=== PATIENT | male | born 1930 | race Caucasian/White ===

== ENCOUNTER 2016-12-29 01:35 | Inpatient (IN) | payer OTHER ==
[~2016-12-29] VITALS: Ht 175.3 cm; Wt 86.6 kg
--- NOTE | 2016-12-29 01:37 | NUR ---
PT SONIA ALS. TAKEN TO BED 3
[2016-12-29 01:43] VITALS: BP 149/76
[2016-12-29 01:56] LABS: RED CELL DISTRIBUTION WIDTH 13.1 % (11.6-13.7); WHITE BLOOD COUNT (AUTO) 13.3 K/uL (4.8-10.8)
--- NOTE | 2016-12-29 02:00 | NUR ---
Sonja appiah in [facility] - 12/29/16 at [address] Eddy evaluating patient at bedside.
--- NOTE | 2016-12-29 02:02 | NUR ---
X-Ray at bedside.
[2016-12-29 02:05] LABS: HEMATOCRIT 45.1 % (36-52); HEMOGLOBIN 14.4 g/dL (12.0-18.0); MEAN CORPUSCULAR HEMOGLOBIN 27 pg (27-31); MEAN CORPUSCULAR HGB CONC 32 g/dL (33-37); MEAN CORPUSCULAR VOLUME 85 fL (80-94); PLATELET COUNT (AUTO) 159 K/uL (140-450); RED BLOOD CELL COUNT(AUTO) 5.32 MIL/uL (4.20-6.10)
[2016-12-29] MEDS: NACL 0.9% 1,000 ML IV SCH ×5 (02:08→23:35)
[2016-12-29] MEDS ORDERED: ACETAMINOPHEN EXTRA STRENGTH 500 MG TAB ONE (02:09)
[2016-12-29 02:11] LABS: APPEARANCE,URINE CLEAR (CLEAR); BILIRUBIN,URINE NEGATIVE (NEGATIVE); BLOOD, URINE 2+ (NEGATIVE); COLOR,URINE YELLOW (YELLOW); LEUKOCYTE ESTERASE ,URINE NEGATIVE (NEGATIVE); NITRITE, URINE NEGATIVE (NEGATIVE); PH,URINE 7.5 (5.0-9.0); PROTEIN,URINE NEGATIVE (NEGATIVE); UGLUCOSE NEGATIVE (NEGATIVE); UROBILINOGEN,URINE 0.2 EU/dL (0.2 - 1)
--- NOTE | 2016-12-29 02:11 | NUR ---
86Y M BIB [facility] C/O OF [place], PT FROM HOME AND HE LIVES WITH HIS . ACCORDING TO SON AT BEDSIDE, HE WAS CALLED AND WHEN HE TALKS TO HIS DAD, HE MUMBLES ON THE PHONE. IT WAS THE REASON WHY THEY GOT WORRIED AND CALL AMBULANCE. PT HAS TEMP 100.8.
[2016-12-29 02:12] LABS: BAND % (MANUAL) 17 % (0-8); EOSINOPHILS % (MANUAL) 1 % (0-4); LYMPHOCYTES % (MANUAL) 8 % (20-46); MONOCYTES % (MANUAL) 2 % (5-12); NEUTROPHILS % (MANUAL) 72 (43-65)
[2016-12-29 02:14] LABS: ALANINE AMINOTRANSFERASE 23 U/L (12-78); ALBUMIN 3.5 g/dL (3.4-5.0); ALKALINE PHOSPHATASE 87 U/L (46-116); ANION GAP 12.7 (8-16); ASPARTATE AMINOTRANSFERASE 25 U/L (15-37); CALCIUM 8.5 mg/dL (8.5-10.1); CARBON DIOXIDE 28.3 mmol/L (21-32); CHLORIDE 103 mmol/L (98-107); GLUCOSE 128 mg/dL (74-106); INR 1.1 (0.8-1.2); SODIUM SERUM 140 mmol/L (136-145); TOTAL BILIRUBIN 0.5 mg/dL (0.0-1.0); TOTAL PROTEIN, SERUM 7.4 g/dL (6.4-8.2); UREA NITROGEN, BLOOD 9 mg/dL (7-18)
[2016-12-29] MEDS ORDERED: AZITHROMYCIN 500 MG in DEXTROSE 5% 250 ML IV ONE (02:35)
--- NOTE | 2016-12-29 02:45 | NUR ---
Dr. Eddy evaluating patient at bedside.
[2016-12-29] MEDS ORDERED: cefTRIAXone 1,000 MG VIAL ONE (02:47)
[2016-12-29] MEDS ORDERED: AZITHROMYCIN 500 MG INJ VIAL IV ONE (02:48)
[2016-12-29 02:51] LABS: LACTIC ACID 1.3 mmol/L (0.4-2.0)
[2016-12-29 03:07] LABS: BACTERIA,URINE None Seen /HPF (None Seen); MUCUS,URINE 4+ /LPF (None Seen); SQUAMOUS EPITHELIAL CELL,UR None Seen /LPF (0-3 (FEW)); WBC,URINE 0-5 (RARE) /HPF (0-5)
[2016-12-29] MEDS ORDERED: MORPHINE SULFATE 2 MG/ML SYR IVP PRN (03:45)
[2016-12-29] MEDS ORDERED: ACETAMINOPHEN 325 MG TAB PO PRN (03:45)
[2016-12-29] MEDS ORDERED: ONDANSETRON 4 MG/2 ML VIAL IVP PRN (03:45)
[2016-12-29] MEDS ORDERED: LORazepam 2 MG/ML VIAL IVP PRN (03:45)
[2016-12-29] MEDS ORDERED: HYDROcodone/APAP 5/325 MG 1 TAB TAB PO PRN (03:45)
--- NOTE | 2016-12-29 03:45 | NUR ---
Patient will be admitted to care of dr. howard. Admited to telemtry. Will go to [id number] a. Belongings list completed.
--- NOTE | 2016-12-29 04:05 | NUR ---
REPORT GIVEN TO GLORIA GODFREY.
--- NOTE | 2016-12-29 04:45 | NUR ---
RECEIVED PT ON BED RESTING COMFORTABLY. INITIAL ASSESSMENT COMPLETED. AAOX3. PT PT IS ON TELE MONITOR. IVF RUNNING AT RIGHT AC 20G. PATENT, INTACT. NOTED TO HAVE SCROTAL EDEMA, BILATERAL LOWER EXTREMITIES +1 PITTING EDEMA. SCAB NOTED AT RIGHT FRONTAL LOBE. BED IN LOW POSITION. SAFETY MEASURE ENSURE. CALL LIGHT WITHIN REACH. NO SIGNS OF DISTRESS. WILL CONTINUE TO MONITOR. Addendum: 12/29/16 at 0724 by Hamlet Cowan RN O2 @ 2 LPM VIA NASAL CANNULA.
[2016-12-29 04:59] VITALS: BP 117/64
[2016-12-29] MEDS: AZITHROMYCIN 500 MG in DEXTROSE 5% 250 ML IV SCH (05:00)
--- NOTE | 2016-12-29 06:05 | NUR ---
FEBRILE 101.3. MEDICATED WITH TYLENOL PO ORDERED. COOLING MEASURE APPLIED. WILL CONTINUE TO MONITOR.
--- NOTE | 2016-12-29 06:54 | NUR ---
TEMP RECHECKED. T 99.4 AT THIS TIME. WILL CONTINUE TO MONITOR.
--- NOTE | 2016-12-29 07:22 | NUR ---
REPORT GIVEN TO JULIAN GODFREY OF AM SHIFT FOR CONTINUITY OF CARE. PT RESTING COMFORTABLY ON BED AT THIS TIME.
--- NOTE | 2016-12-29 07:23 | NUR ---
RECEIVED REPORT FROM BLOCK ENGRAVER NURSE AT BEDSIDE. PT IS A&OX3. PT'S SCROTUM IS EDEMATOUS, ELEVATED WITH A TOWEL. TEMP 98.7. WILL CONTINUE TO MONITOR. PT HAS IV ON R AC 20 G RUNNING NS@80ML/HR. PT IS ON O2 2L NC, O2 SAT 97%. HELPED PT USE URINAL, 500ML TOTAL EMPTIED. CALL LIGHT WITHIN REACH. WILL CONTINUE TO MONITOR.
[2016-12-29 08:00] VITALS: BP 131/70
[2016-12-29] MEDS: ALBUTEROL 0.083% 2.5 MG/3 ML NEBU INH PRN ×2 (08:14→14:18)
--- NOTE | 2016-12-29 08:29 | NUR ---
AWAKE AND ALERT DURING AND POST HHN THERAPY PATIENT PRESENTING WITH STRG MOIST NON PRODUCTIVE COUGH SPECIMEN CUP PLACED AT BEDSIDE FOR SPUTUM COLLECTION YUKI/BEKAH NOTIFIED Addendum: 12/29/16 at 0837 by Dilip Stevenson RT REVIEWED CXR DATED 12/29/2016
--- NOTE | 2016-12-29 08:53 | NUR ---
PATIENT HAS BEEN SCREENED AND CATEGORIZED LOW NUTRITION RISK. PATIENT WILL BE SEEN WITHIN 7 DAYS OF ADMISSION. 01/04/[address] Addendum: 12/29/16 at [address] ERROR PATIENT HAS BEEN SCREENED AND CATEGORIZED MODERATE NUTRITION RISK. PATIENT WILL BE SEEN WITHIN 3-5 DAYS OF ADMISSION. 12/31/16-01/02/[address]
--- NOTE | 2016-12-29 09:00 | NUR ---
TEMP 98.1, CALL LIGHT WITHIN REACH.
[2016-12-29] MEDS: ENOXAPARIN 40 MG/0.4 ML SYR SUBQ SCH (09:08)
--- NOTE | 2016-12-29 10:25 | NUR ---
SON VISITED AT BEDSIDE. PT IN STABLE CONDITION.
--- NOTE | 2016-12-29 10:40 | NUR ---
REMINDED PT TO COUGH UP MUCUS SPECIMEN. PT VERBALIZED UNDERSTANDING.
[2016-12-29 11:27] LABS: CREATINE KINASE MB 0.6 ng/mL (0-3.6)
--- NOTE | 2016-12-29 11:30 | NUR ---
PT IS RESTING IN BED. NO DISTRESS NOTED. NO COMPLAINTS AT THIS TIME. CALL LIGHT WITHIN REACH. WILL CONTINUE TO MONITOR.
[2016-12-29 12:00] VITALS: BP 131/68
--- NOTE | 2016-12-29 13:00 | NUR ---
COLLECTED PT'S MUCUS AND SENT TO LAB.
--- NOTE | 2016-12-29 13:30 | NUR ---
AND FRIEND AT BEDSIDE. PT EATING LUNCH IN BED. CALL LIGHT WITHIN REACH. WILL CONTINUE TO MONITOR.
--- NOTE | 2016-12-29 15:30 | NUR ---
CHECKED PT'S TEMP 99. CHECKED 20 MINUTES LATER, 99.9. ICE PACK APPLIED. WILL CHECK AGAIN.
--- NOTE | 2016-12-29 15:40 | NUR ---
CM NOTE INITIAL REVEIW SENT TO [facility] [phone] P DECEMBER [phone]
[2016-12-29 16:00] VITALS: BP 117/58
--- NOTE | 2016-12-29 16:00 | NUR ---
PT TEMP 98.8. WILL RECHECK. NO DISTRESS NOTED. CALL LIGHT WITHIN REACH.
--- NOTE | 2016-12-29 17:30 | NUR ---
PT'S TEMP 98. WILL CONTINUE TO MONITOR. PT SAT UP IN BED TO EAT DINNER. TOLERATING WELL.
[2016-12-29 18:47] LABS: CREATINE KINASE MB 0.4 ng/mL (0-3.6)
--- NOTE | 2016-12-29 19:20 | NUR ---
RECEIVED REPORT FROM BEKAH MIRZA AND SORAYA AT BEDSIDE. INITIAL ASSESSMENT COMPLETED. PT AOX3, SHOWS EPISODES OF CONFUSION AT TIMES. PT'S SKIN IS INTACT. PT HAS EDEMATOUS SCROTUM. PT ON 02 2L NC. PT HAS IV ON RIGHT AC G 20; INFUSING FLUIDS WELL. PT USES URINAL AT BEDSIDE. ORIENTED PT TO ROOM AND SURROUNDINGS AND USE OF CALL LIGHT. EXPLAINED PLAN OF CARE TO PT AND HE VERBALIZES UNDERSTANDING. WILL CONTINUE TO MONITOR PT.
--- NOTE | 2016-12-29 19:24 | NUR ---
ENDORSED CARE OF PT TO HOME SALES SERVICE PROFESSIONAL NURSE. PT IN STABLE CONDITION.
[2016-12-29 20:00] VITALS: BP 127/65
--- NOTE | 2016-12-29 20:55 | NUR ---
PT'S SON AT BEDSIDE VISITING, WILL CONTINUE TO MONITOR PT.
--- NOTE | 2016-12-29 23:05 | NUR ---
PT SLEEPING AT THIS TIME, NO SIGNS OF DISTRESS OR DISCOMFORT NOTED. CALL LIGHT WITHIN REACH.
[2016-12-30] VITALS: BP 133/68
--- NOTE | 2016-12-30 01:15 | NUR ---
0200 ROCEPHIN INFUSING AT THIS TIME, WILL CONTINUE TO MONITOR PT.
--- NOTE | 2016-12-30 02:33 | NUR ---
PT REQUESTING A BLANKET, PROVIDED WITH A WARM BLANKET. ALL NEEDS MET AT THIS TIME, WILL CONTINUE TO MONITOR PT.
[2016-12-30] MEDS: AZITHROMYCIN 500 MG in DEXTROSE 5% 250 ML IV SCH (04:43)
--- NOTE | 2016-12-30 04:44 | NUR ---
0500 AZITHROMYCIN INFUSING NOW. PT STABLE, WILL CONTINUE TO MONITOR PT.
[2016-12-30 05:34] LABS: BASOPHILS # (AUTO) 0.1 K/uL (0.00-0.22); BASOPHILS % (AUTO) 0.9 % (0.0-2.0); EOSINOPHILS # (AUTO) 0.4 K/uL (0-0.4); HEMATOCRIT 39.7 % (36-52); LYMPHOCYTES # (AUTO) 1.6 K/uL (2.0-11.5); MEAN CORPUSCULAR HEMOGLOBIN 28 pg (27-31); MEAN CORPUSCULAR HGB CONC 33 g/dL (33-37); MEAN CORPUSCULAR VOLUME 86 fL (80-94); MONOCYTES # (AUTO) 0.8 K/uL (0.8-1.0); MONOCYTES % (AUTO) 6.2 % (1.7-9.3); NEUTROPHILS # (AUTO) 10.4 K/uL (1.8-7.7); NEUTROPHILS % (AUTO) 77.9 % (42.2-75.2); PLATELET COUNT (AUTO) 133 K/uL (140-450); RED BLOOD CELL COUNT(AUTO) 4.62 MIL/uL (4.20-6.10); RED CELL DISTRIBUTION WIDTH 13.3 % (11.6-13.7); WHITE BLOOD COUNT (AUTO) 13.3 K/uL (4.8-10.8)
[2016-12-30 06:18] LABS: ALANINE AMINOTRANSFERASE 16 U/L (12-78); ALBUMIN 2.6 g/dL (3.4-5.0); ALKALINE PHOSPHATASE 65 U/L (46-116); ANION GAP 10.5 (8-16); ASPARTATE AMINOTRANSFERASE 18 U/L (15-37); CARBON DIOXIDE 26.3 mmol/L (21-32); CHLORIDE 107 mmol/L (98-107); CREATININE 0.8 mg/dL (0.6-1.3); GLUCOSE 109 mg/dL (74-106); MAGNESIUM 1.9 mg/dL (1.8-2.4); POTASSIUM 3.8 mmol/L (3.5-5.1); SODIUM SERUM 140 mmol/L (136-145); TOTAL BILIRUBIN 0.5 mg/dL (0.0-1.0); TOTAL PROTEIN, SERUM 6.2 g/dL (6.4-8.2); UREA NITROGEN, BLOOD 11 mg/dL (7-18)
--- NOTE | 2016-12-30 07:20 | NUR ---
ENDORSED PT IN STABLE CONDITION TO BEKAH CASAS.
--- NOTE | 2016-12-30 07:25 | NUR ---
RECEIVED REPORT FROM BEKAH BYRD. PT IS RESTING IN BED, A/OX3-4, AMBULATES WITH ASSIST, SKIN IS INTACT, THERE IS SCROTUM INFLAMMATION NOTED, IV IS ON THE RT AC, PATENT, INTACT, INFUSING WELL, NO S/S OF RESPIRATORY DISTRESS OR DISCOMFORT NOTED, DISCUSSED PLAN OF CARE WITH PT, PT VERBALIZED UNDERSTANDING, SAFETY/FALL PRECAUTIONS ARE IN PLACE, CALL LIGHT WITHIN REACH, WILL CONTINUE TO MONITOR.
[2016-12-30 08:00] VITALS: BP 126/74
[2016-12-30] MEDS: ENOXAPARIN 40 MG/0.4 ML SYR SUBQ SCH (09:15)
--- NOTE | 2016-12-30 09:30 | NUR ---
PT IS RESTING IN BED NO S/S OF RESPIRATORY DISTRESS OR DISCOMFORT NOTED, CALL LIGHT WITHIN REACH,WILL CONTINUE TO MONITOR.
--- NOTE | 2016-12-30 11:30 | NUR ---
PT RESTING IN BED, WATCHING TV, CALL LIGHT WITHIN REACH.
--- NOTE | 2016-12-30 12:28 | NUR ---
FAXED CONCURRENT REVIEW TO [facility] [phone] PHONE JOSE ALEJANDRO [phone]
--- NOTE | 2016-12-30 12:30 | NUR ---
PT SITTING ON CHAIR EATING LUNCH, WATCHING TV, CALL LIGHT IS WITHIN REACH.
--- NOTE | 2016-12-30 14:05 | NUR ---
CALLED RT TO REQUEST A BREATHING TREATMENT FOR PT.
[2016-12-30] MEDS: ALBUTEROL 0.083% 2.5 MG/3 ML NEBU INH PRN ×2 (14:10→19:43)
[2016-12-30 16:00] VITALS: BP 131/69
--- NOTE | 2016-12-30 16:30 | NUR ---
PT RESTING IN BED, NO S/S OF RESPIRATORY DISTRESS OR DISCOMFORT NOTED, CALL LIGHT WITHIN REACH, WILL CONTINUE TO MONITOR.
[2016-12-30] MEDS: NACL 0.9% 1,000 ML IV SCH (17:22)
--- NOTE | 2016-12-30 19:35 | NUR ---
ENDORSED PT TO BEKAH SUN. FOR CONTINUITY OF CARE, PT STABLE ON AT THIS TIME.
--- NOTE | 2016-12-30 19:45 | NUR ---
RECEIVED REPORT FROM DAY RN. PT RESTING IN BED, NO S/S OF ACUTE DISTRESS OR DISCOMFORT NOTED. VITAL SIGNS TAKEN T,99.2, BP 116/51, HR 76, O2 SAT 95%, RR, 19. PATIENT ON 1L O2 NC. IV INTACT AND PATENT, NOTED PT HAS EDEMATOUS SCROTUM. CALL LIGHT WITHIN REACH, SAFETY MEASURE ENSURED, WILL CONTINUE TO MONITOR
--- NOTE | 2016-12-30 21:30 | NUR ---
PT IV INFILTRATED, SLIGHTLY SWELLING NOTED AT THE IV SITE. IV TAKEN OUT, TIP INTACT. STARTED NEW IV ON LT HAND, 22G, FLUID INFUSING, NO S/S OF PAIN OR DISCOMFORT NOTED. PT'S SON AT BEDSIDE, NOTED PT WAS TALKING WITH HIS SON WITHOUT ANY SOB, PT'S SON STATED HIS DAD WANTED TO LEAVE THE BEDSIDE RAIL DOWN, EDUCATED THEM THE RAILS WERE FOR SAFETY. PT VERBALIZED UNDERSTANDING. CALL LIGHT WITHIN REACH, SAFETY MEASURE ENSURED, WILL CONTINUE TO MONITOR
--- NOTE | 2016-12-30 23:50 | NUR ---
PT SLEEPING IN BED, NO S/S OF ACUTE DISTRESS NOTED, RESPIRATION EVEN AND UNLABORED, VITAL SIGN TAKEN, STABLE. CALL LIGHT WITHIN REACH, SAFETY MEASURE ENSURED, WILL CONTINUE TO MONITOR
[2016-12-31] VITALS: BP 110/63
--- NOTE | 2016-12-31 02:53 | NUR ---
PT SLEEPING IN BED, RESPIRATION EVEN AND UNLABORED, NO S/S OF ACUTE DISTRESS NOTED, CALL LIGHT WITHIN REACH, SAFETY MEASURE ENSURED WILL CONTINUE TO MONITOR
[2016-12-31] MEDS: AZITHROMYCIN 500 MG in DEXTROSE 5% 250 ML IV SCH (04:25)
--- NOTE | 2016-12-31 04:45 | NUR ---
PT SLEEPING IN BED, RESPIRATION EVEN AND UNLABORED, SCHEDULED ZITHROMAX IS INFUSING, NO S/S OF ACUTE DISTRESS NOTED, CALL LIGHT WITHIN REACH, SAFETY MEASURE ENSURED, WILL CONTINUE TO MONITOR
[2016-12-31] MEDS: NACL 0.9% 1,000 ML IV SCH ×2 (05:41→09:23)
--- NOTE | 2016-12-31 06:08 | NUR ---
PT O2 SAT AT 95% ON 1L O2 NC, WENT TO X RAY IN WHEEL CHAIR
--- NOTE | 2016-12-31 06:10 | NUR ---
PT BACK FROM X-RAY. NO S/S OF ACUTE DISTRESS NOTED, CALL LIGHT WITHIN REACH, SAFETY MEASURE ENSURED, WILL CONTINUE TO MONITOR
[2016-12-31 06:42] LABS: BASOPHILS # (AUTO) 0.1 K/uL (0.00-0.22); BASOPHILS % (AUTO) 0.9 % (0.0-2.0); EOSINOPHILS # (AUTO) 0.7 K/uL (0-0.4); HEMATOCRIT 37.5 % (36-52); HEMOGLOBIN 12.5 g/dL (12.0-18.0); LYMPHOCYTES # (AUTO) 1.8 K/uL (2.0-11.5); LYMPHOCYTES % (AUTO) 20.4 % (20.5-51.1); MEAN CORPUSCULAR HEMOGLOBIN 29 pg (27-31); MEAN CORPUSCULAR HGB CONC 33 g/dL (33-37); MEAN CORPUSCULAR VOLUME 86 fL (80-94); MONOCYTES # (AUTO) 0.8 K/uL (0.8-1.0); MONOCYTES % (AUTO) 9.6 % (1.7-9.3); NEUTROPHILS # (AUTO) 5.2 K/uL (1.8-7.7); NEUTROPHILS % (AUTO) 61.1 % (42.2-75.2); PLATELET COUNT (AUTO) 134 K/uL (140-450); RED BLOOD CELL COUNT(AUTO) 4.38 MIL/uL (4.20-6.10); RED CELL DISTRIBUTION WIDTH 12.8 % (11.6-13.7); WHITE BLOOD COUNT (AUTO) 8.6 K/uL (4.8-10.8)
[2016-12-31 06:44] LABS: ANION GAP 7.5 (8-16); CARBON DIOXIDE 29.4 mmol/L (21-32); CHLORIDE 107 mmol/L (98-107); CREATININE 0.8 mg/dL (0.6-1.3); GLUCOSE 117 mg/dL (74-106); POTASSIUM 3.9 mmol/L (3.5-5.1); SODIUM SERUM 140 mmol/L (136-145); UREA NITROGEN, BLOOD 9 mg/dL (7-18)
[2016-12-31 06:53] LABS: MAGNESIUM 1.8 mg/dL (1.8-2.4); PHOSPHORUS 3.1 mg/dL (2.5-4.9)
--- NOTE | 2016-12-31 07:10 | NUR ---
ENDORSED PLAN OF CARE TO DAY SHIFT RN. PATIENT IS STABLE.
--- NOTE | 2016-12-31 07:10 | NUR ---
RECEIVED REPORT FROM NIGHT NURSE, PT IS AAOX4 ARMENIAN SPEAKING, IV TO LEFT HAND 22G INFUSING WELL, RIGHT FOREHEAD SCAB, SWOLLEN SCROTUM. PT INITIALLY ON O21L BUT SAT 96% WITHOUT OXYGEN, INITIAL ASSESSMENT COMPLETED, REVIEW PLAN OF CARE WITH PT, PT VERBALIZED UNDERSTANDING, ALL SAFETY PRECAUTIONS MET. CALL LIGHT WITHIN REACH. WILL CONTINUE TO MONITOR.
[2016-12-31 08:00] VITALS: BP 140/60
[2016-12-31] MEDS: ENOXAPARIN 40 MG/0.4 ML SYR SUBQ SCH (09:00)
--- NOTE | 2016-12-31 09:10 | NUR ---
PT CURRENTLY AWAKE EATING BREAKFAST, NO S/S OF DISTRESS NOTED. ALL NEEDS MET. CALL LIGHT WITHIN REACH. WILL CONTINUE TO MONITOR.
--- NOTE | 2016-12-31 11:20 | NUR ---
PT CURRENTLY SLEEPING, CHECKED PULSE OX 94% ON ROOM AIR. WILL CONTINUE TO MONITOR.
[2016-12-31] MEDS ORDERED: LEVO750T2 PO (13:32)
--- NOTE | 2016-12-31 14:12 | NUR ---
DISCUSSED DISCHARGE PLAN WITH PT, PT VERBALIZED UNDERSTANDING.
--- NOTE | 2016-12-31 14:13 | NUR ---
CONTACTED CHRISTOPHER EARLY (SON) TO INFORM HIM OF PT DISCHARGE, STATES THAT HE WILL BIN TO PICK PT UP IN 3 HOURS, INFORM PT, PT VERBALIZED UNDERSTANDING.
--- NOTE | 2016-12-31 15:34 | NUR ---
PT CURRENTLY SITTING ON CHAIR AT BEDSIDE, NO S/S OF DISTRESS NOTED. ALL NEEDS MET. CALL LIGHT WITHIN REACH. WILL CONTINUE TO MONITOR.
--- NOTE | 2016-12-31 15:54 | NUR ---
P.T. NOTES P.T. LITO SCHAWRTZ; NURSING TO AMBULATE PATIENT AD MALIHA. Addendum: 12/31/16 at 1554 by Cammy Rain PT Amended: Links added.
[2016-12-31 16:00] VITALS: BP 130/71
--- NOTE | 2016-12-31 17:35 | NUR ---
SON IN TO PICK PT UP, PT SIGNED ALL DISCHARGE PAPERWORK, IV REMOVED TIP INTACT, DISCHARGE PRESCRIPTION GIVEN, DISCHARGE EDUCATION GIVEN, ALL PERSONAL BELONGINGS WITH PT, PT CURRENTLY EATING DINNER. WILL WALK TO FRONT LOBBY ONCE READY.
--- NOTE | 2016-12-31 18:05 | NUR ---
PT WAS WALKED UT TO FRONT LOBBY IN STABLE CONDITION.
== END 2016-12-31 18:06 | disposition home or self-care (01) | DRG 133 ==
LOC: MED 01:35 → MTU 03:45
PROVIDERS: ADMIT Internal Medicine Pulmonary Disease; ATTEND Internal Medicine Pulmonary Disease
DX: J96.00 Acute respiratory failure, unspecified whether with hypoxia or hypercapnia (principal); G93.41 Metabolic encephalopathy; J18.9 Pneumonia, unspecified organism
CPT/HCPCS: 36415; 71010; 71020; 80048; 80053; 81001; 82550; 82553; 83605; 83735; 83874; 83880; 84100; 84484; 85025; 85610; 85730; 87040; 87070; 87081; 87086; 87186; 87205; 93005; 94640; 97110; 99285; J0456; J0696; J1650; J7030; J7060; J7613; Q0092

== ENCOUNTER 2017-09-08 05:58 | Day surgery (SDC) | payer OTHER ==
[~2017-09-08] VITALS: Ht 172.7 cm; Wt 83.9 kg
[~2017-09-08 05:58] MED LIST: LEVO750T2 PO
[2017-09-08] MEDS ORDERED: MIDAZOLAM 2 MG/2 ML VIAL ONE (07:27)
[2017-09-08] MEDS ORDERED: fentaNYL 0.05 MG/ML VIAL ONE (07:27)
[2017-09-08] MEDS ORDERED: LIDOCAINE 2% 100 MG/5 ML UJET TP ONE (07:29)
[2017-09-08] MEDS ORDERED: MIDAZOLAM 2 MG/2 ML VIAL IVP ONE (09:05)
== END 2017-09-08 10:09 | disposition home or self-care (01) ==
LOC: MDS 05:58 → MMU 06:01 → MDS 10:09
PROVIDERS: ATTEND Internal Medicine Gastroenterology
DX: K63.5 Polyp of colon (principal); Z87.01 Personal history of pneumonia (recurrent); G93.41 Metabolic encephalopathy; J96.01 Acute respiratory failure with hypoxia; E66.3 Overweight; Z68.28 Body mass index [BMI] 28.0-28.9, adult
CPT/HCPCS: 45381; 45385; 88305; J2250; J3010

== ENCOUNTER 2017-11-26 23:19 | Emergency (ER) | payer OTHER ==
[~2017-11-26] VITALS: Ht 167.6 cm; Wt 79.4 kg
[2017-11-26 23:20] VITALS: BP 177/93
--- NOTE | 2017-11-26 23:20 | NUR ---
PT SONIA BLS. TAKEN TO BED 2
--- NOTE | 2017-11-26 23:40 | NUR ---
87Y/M BIBA C/O FEVER AND COUGH X3 DAYS RR EVEN AND UNLABORED, BL BS DIMINSHED THROUGH OUT, PT STATES HE HAS WHITE SPUTUM. PT HAS HAD VOMITING X1 DAY, ZOFRAN 4MG ODT GIVEN ON TRANSPORT. ABD IS SOFT, FLAT, NON TENDER, ACTIVE BS X4. PT AA&OX4, SITTING IN BED. NO PMH, NKA
[2017-11-27] MEDS ORDERED: AZITHROMYCIN 500 MG in DEXTROSE 5% 250 ML IV ONE ×2
[2017-11-27] MEDS ORDERED: ACETAMINOPHEN EXTRA STRENGTH 500 MG TAB PO ONE
[2017-11-27] MEDS ORDERED: cefTRIAXone 1,000 MG in DEXT 5% MINI-BAG PLUS 50 ML IV ONE ×2
--- NOTE | 2017-11-27 00:05 | NUR ---
Respiratory Therapist at bedside for respiratory intervention.
[2017-11-27] MEDS ORDERED: cefTRIAXone 1,000 MG VIAL ONE (00:08)
[2017-11-27] MEDS ORDERED: AZITHROMYCIN 500 MG INJ VIAL IV ONE (00:08)
[2017-11-27 00:18] LABS: BASOPHILS % (AUTO) 0.7 % (0.0-2.0); EOSINOPHILS # (AUTO) 0.1 K/uL (0-0.4); EOSINOPHILS % (AUTO) 2.4 % (0.0-4.0); HEMATOCRIT 40.3 % (36-52); HEMOGLOBIN 13.2 g/dL (12.0-18.0); LYMPHOCYTES % (AUTO) 17.4 % (20.5-51.1); MEAN CORPUSCULAR HEMOGLOBIN 28 pg (27-31); MEAN CORPUSCULAR HGB CONC 33 g/dL (33-37); MEAN CORPUSCULAR VOLUME 84.6 fL (80-94); MONOCYTES # (AUTO) 0.8 K/uL (0.8-1.0); MONOCYTES % (AUTO) 13.9 % (1.7-9.3); NEUTROPHILS # (AUTO) 3.8 K/uL (1.8-7.7); NEUTROPHILS % (AUTO) 65.6 % (42.2-75.2); PLATELET COUNT (AUTO) 133 K/uL (140-450); RED BLOOD CELL COUNT(AUTO) 4.77 MIL/uL (4.20-6.10); RED CELL DISTRIBUTION WIDTH 14.4 % (11.6-13.7); WHITE BLOOD COUNT (AUTO) 5.7 K/uL (4.8-10.8)
[2017-11-27 00:29] LABS: ANION GAP 10.9 (8-16); CHLORIDE 100 mmol/L (98-107); CREATININE 0.9 mg/dL (0.7-1.3); GLUCOSE 119 mg/dL (74-106); POTASSIUM 3.9 mmol/L (3.5-5.1); SODIUM SERUM 134 mmol/L (136-145); UREA NITROGEN, BLOOD 13 mg/dL (7-18)
[2017-11-27 00:35] LABS: ALBUMIN 3.3 g/dL (3.4-5.0); ASPARTATE AMINOTRANSFERASE 24 U/L (15-37); TOTAL BILIRUBIN 0.5 mg/dL (0.0-1.0)
[2017-11-27] MEDS ORDERED: IPRATROPIUM 0.02% 0.5 MG/2.5 ML NEBU INH ONE ×2 (00:35)
[2017-11-27] MEDS ORDERED: ALBUTEROL 0.083% 2.5 MG/3 ML NEBU INH ONE ×2 (00:35)
[2017-11-27 01:07] LABS: APPEARANCE,URINE CLEAR (CLEAR); BILIRUBIN,URINE NEGATIVE (NEGATIVE); BLOOD, URINE 3+ (NEGATIVE); COLOR,URINE YELLOW (YELLOW); LEUKOCYTE ESTERASE ,URINE NEGATIVE (NEGATIVE); NITRITE, URINE NEGATIVE (NEGATIVE); UGLUCOSE NEGATIVE (NEGATIVE)
[2017-11-27 01:15] LABS: RBC,URINE 50-80 /HPF (0-5)
[2017-11-27 01:16] LABS: WBC,URINE 0-5 (RARE) /HPF (0-5)
--- NOTE | 2017-11-27 01:30 | NUR ---
PT IN LAYING IN BED, COMFORT NEEDS MET AT THIS TIME, FAMILY AT BEDSIDE, WILL CONTINUE TO MONITOR.
--- NOTE | 2017-11-27 02:30 | NUR ---
Patient discharged with v/s stable. Written and verbal after care instructions given and explained. Patient alert, oriented and verbalized understanding of instructions. Ambulatory with steady gait. All questions addressed prior to discharge. ID band removed. Patient advised to follow up with PMD. Rx of PREDNISONE, ZITHROMAX, IBUPROFEN, ALBUTEROL given. Patient educated on indication of medication including possible reaction and side effects. Opportunity to ask questions provided and answered.
[2017-11-27 02:31] VITALS: BP 124/61
== END 2017-11-27 02:30 | disposition home or self-care (01) ==
LOC: MED 23:19
DX: J40 Bronchitis, not specified as acute or chronic (principal); Z79.899 Other long term (current) drug therapy
CPT/HCPCS: 36415; 36600; 71045; 80053; 81001; 82803; 83605; 84484; 85025; 87040; 93005; 94640; 96365; 96367; 99285; J0456; J0696; J7060; J7613; J7644; Q0092

== ENCOUNTER 2018-02-23 08:07 | Day surgery (SDC) | payer OTHER ==
[~2018-02-23] VITALS: Ht 170.2 cm; Wt 83.9 kg
[2018-02-23] MEDS ORDERED: LIDOCAINE 2% 100 MG/5 ML UJET TP ONE (10:15)
[2018-02-23] MEDS ORDERED: fentaNYL 0.05 MG/ML VIAL ONE (11:03)
[2018-02-23] MEDS ORDERED: fentaNYL 0.05 MG/ML VIAL IVP ONE (13:45)
== END 2018-02-23 12:46 | disposition home or self-care (01) ==
LOC: MDS 08:07 → MMU 08:10 → MDS 12:46
PROVIDERS: ATTEND Internal Medicine Gastroenterology
DX: D12.2 Benign neoplasm of ascending colon (principal); D12.3 Benign neoplasm of transverse colon; E66.3 Overweight; Z68.29 Body mass index [BMI] 29.0-29.9, adult; Z79.2 Long term (current) use of antibiotics; Z79.899 Other long term (current) drug therapy; Z87.01 Personal history of pneumonia (recurrent); Z90.49 Acquired absence of other specified parts of digestive tract; Z98.890 Other specified postprocedural states
CPT/HCPCS: 45381; 45385; 88305; J3010

== ENCOUNTER 2019-10-17 11:06 | Inpatient (IN) | payer OTHER, SELFPAY ==
[~2019-10-17] VITALS: Ht 172.7 cm; Wt 83.5 kg
--- NOTE | 2019-10-17 11:06 | NUR ---
Patient BIBA ALS, transferred to bed 1. RN evaluating patient at bedside.
[2019-10-17 11:07] VITALS: BP 155/70
--- NOTE | 2019-10-17 11:14 | NUR ---
70/M BIBA WITH FEVER/FLU LIKE SYMPTOMS X TODAY. STATES PT HAD SUBJECTIVE FEVER, N/V X 1, DIZZY/WEAK, ALTERED X TODAY. NO FEVER WITH EMS. TEMPORAL 98.5 AT THIS TIME. GCS 14, AOX3. NO TRAVEL OR CONTACT HX. PT WAS 91% ON RA, NO RESP DISTRESS, PLACED ON 4L NC BY EMS AND SATURATION INCREASE TO 97% NOTED WITH OCCASIONAL MOIST COUGH WAS GIVEN 4MG ZOFRAN IVP BY EMS. HX- HERNIA REPAIR
--- NOTE | 2019-10-17 11:20 | NUR ---
DR ROMEO EVALUATING PT AT BEDSIDE
[2019-10-17] MEDS ORDERED: NACL 0.9% 500 ML IV SCH (11:24)
--- NOTE | 2019-10-17 11:41 | NUR ---
XRAY AT BEDSIDE
--- NOTE | 2019-10-17 11:48 | NUR ---
RT AT BEDSIDE FOR ABG
--- NOTE | 2019-10-17 11:49 | NUR ---
PHP ARCHITECT AT BEDSIDE
--- NOTE | 2019-10-17 12:02 | NUR ---
PER DIASHEEN AT [facility], PT FITS CRITERIA TO BE SWABBED FOR COVID 19. ADVISED TO SWAB FOR FLU A/B, REGARDLESS OF FLU SWAB RESULT, OBTAIN COVID 19 SWAB. NO PUI # NEEDED IF SAMPLE SENT TO [facility] OR [facility].
--- NOTE | 2019-10-17 12:06 | NUR ---
PT RESTING IN BED, ON BEDSIDE MONITOR, NO SIGNS OF DISTRESS.
[2019-10-17 12:13] LABS: HEMATOCRIT 41.5 % (36-52); HEMOGLOBIN 13.5 g/dL (12.0-18.0); MEAN CORPUSCULAR HEMOGLOBIN 28 pg (27-31); MEAN CORPUSCULAR HGB CONC 33 g/dL (33-37); MEAN CORPUSCULAR VOLUME 86.5 fL (80-94); PLATELET COUNT (AUTO) 136 K/uL (140-450); RED CELL DISTRIBUTION WIDTH 13.8 % (11.6-13.7); WHITE BLOOD COUNT (AUTO) 10.3 K/uL (4.8-10.8)
--- NOTE | 2019-10-17 12:19 | NUR ---
INFLUENZA SWAB, NOVEL CORONAVIRUS SWAB, AND URINE SAMPLE HANDED TO ALISSON GODFREY
[2019-10-17 12:25] LABS: APPEARANCE,URINE CLEAR (CLEAR); BILIRUBIN,URINE NEGATIVE (NEGATIVE); BLOOD, URINE 1+ (NEGATIVE); COLOR,URINE DARK YELLOW (YELLOW); LEUKOCYTE ESTERASE ,URINE NEGATIVE (NEGATIVE); NITRITE, URINE NEGATIVE (NEGATIVE); PH,URINE 7.5 (5.0-9.0); UGLUCOSE NEGATIVE (NEGATIVE)
[2019-10-17 12:28] LABS: PROTHROMBIN TIME 10.3 secs (10.8-13.4)
[2019-10-17 12:31] LABS: ALBUMIN 3.1 g/dL (3.4-5.0); ANION GAP 13.5 (8-16); ASPARTATE AMINOTRANSFERASE 451 U/L (15-37); CARBON DIOXIDE 27.9 mmol/L (21-32); CHLORIDE 104 mmol/L (98-107); CREATININE 0.9 mg/dL (0.6-1.3); GLUCOSE 105 mg/dL (74-106); POTASSIUM 3.4 mmol/L (3.5-5.1); SODIUM SERUM 142 mmol/L (136-145); TOTAL BILIRUBIN 1.1 mg/dL (0.0-1.0); UREA NITROGEN, BLOOD 12 mg/dL (7-18)
[2019-10-17 12:42] LABS: HYALINE CASTS, URINE 0-10 /LPF (None Seen); RBC,URINE 11-20 (MOD) /HPF (0-5)
[2019-10-17 12:44] LABS: LYMPHOCYTES % (MANUAL) 3 % (20-46); MONOCYTES % (MANUAL) 2 % (5-12)
[2019-10-17] MEDS ORDERED: ASPIRIN 81 MG TAB.CHEW PO ONE (12:55)
[2019-10-17] MEDS ORDERED: LORazepam 2 MG/ML VIAL IVP PRN (13:55)
[2019-10-17] MEDS ORDERED: ALBUTEROL 0.083% 2.5 MG/3 ML NEBU INH PRN (13:55)
[2019-10-17] MEDS: LACTATED RINGERS 1,000 ML IV SCH (13:55)
[2019-10-17] MEDS ORDERED: MORPHINE SULFATE 2 MG/ML SYR IVP PRN (13:55)
[2019-10-17] MEDS ORDERED: ACETAMINOPHEN 325 MG TAB PO PRN (13:55)
[2019-10-17] MEDS ORDERED: ONDANSETRON 4 MG/2 ML VIAL IVP PRN (13:55)
--- NOTE | 2019-10-17 14:36 | NUR ---
PT RESTING IN BED, NO SIGNS OF DISTRESS, VSS ON BEDSIDE MONITOR.
--- NOTE | 2019-10-17 15:10 | NUR ---
PT HAD LARGE BM--DIARRHEA
--- NOTE | 2019-10-17 15:20 | NUR ---
Patient will be admitted to care of DR. WOODS. Admited to TELE. Will go to room ICU 7. Belongings list completed. Report to BEKAH SAUER.
--- NOTE | 2019-10-17 15:20 | NUR ---
REPORT RECEIVED FROM TINTER PHOTOGRAPH ANGELITO. PT IN ICU 7. BILATERAL CHEST RISE AND FALL OBSERVED. PT ON NC 4L/MIN. PERRL REACTIVE 3 MM. SKIN INTACT. RIGHT LOWER LEG EDEMATOUS, RED, PITTNG, WARM TO THE TOUCH. CAP REFILL < 3 SEC. PULSES PALPABLE TO 4 EXTREMITIES. HR 66, BP 111/71, SPO2 97%, RR14. NORMAL SINUS RHYTHM. LUNG SOUNDS CLEAR THROUGHOUT, ABDOMEN SOFT, NONTENDER. RIGHT LOWER QUADRANT HERNIA. RIGHT INGUINAL HERNIA. LEFT LOWER ABDOMINAL HERNIA, SCROTAL HERNIA. SURGICAL SCARRING ON LEFT LOWER QUADRANT. POSITIVE BOWEL SOUNDS THROUGHOUT. BM X 1. SOFT. PERICARE DONE. 20 GAUGE IN LEFT AC. IV SITE WNL. HEAD OF BED 35 DEGREES. BED LOCKED IN LOWEST POSITION. ALL SAFETY MEASURES IN PLACE. POC REVIEWED.
[2019-10-17 15:22] VITALS: BP 111/71
--- NOTE | 2019-10-17 15:50 | NUR ---
SPOKE WITH PT SON CHRISTOPHER EARLY ON THE TELEPHONE. GAVE UPDATE TO SON REGARDING PT'S CURRENT CONDITION. PT PROVIDED LIMITED PT HISTORY. DENIES MEDICAL PROBLEMS SUCH DM, HTN, MALIGNANCY. DENIES CARDIAC HISTORY. SON STATES THAT PT HAD PNEUMONIA 3 YEARS AGO. 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 SON STATES THAT PT NORMALLY IS ABLE TO AMBULATE, ABLE TO DRIVE A CAR, AND SPEAKS TO HIS SON DAILY ON THE PHONE. PT LIVES WITH HIS IN AN APARTMENT IN [place]
[2019-10-17 16:00] VITALS: BP 125/65
--- NOTE | 2019-10-17 17:00 | NUR ---
PT IS RESTING, ASLEEP
--- NOTE | 2019-10-17 17:30 | NUR ---
DR WOODS CALLED TO NOTIFY K=3.4, TROPONIN 0.157, SCROTAL SWELLING/HERNIA, R LE EDEMA AND REDNESS, ORDERS RECEIVED AND ENTERED.
[2019-10-17] MEDS: AZITHROMYCIN 500 MG in DEXTROSE 5% 250 ML IV SCH (17:31)
[2019-10-17] MEDS: AMPICILLIN/SULBACTAM 3 GM in NACL 0.9% 100 ML IV SCH ×2 (18:00→23:20)
--- NOTE | 2019-10-17 18:00 | NUR ---
PT GIVEN DINNER. REQUESTED PT DIET TO BE CHANGED TO MECHANICAL SOFT D/T LACK OF DENTURES.
--- NOTE | 2019-10-17 18:45 | NUR ---
MRSA SWAB COLLECTED. DELIVERED TO LAB
--- NOTE | 2019-10-17 18:50 | NUR ---
PHOTO TAKEN OF LOWER RIGHT EXTREMITY FOR WOUND DOCUMENTATION
--- NOTE | 2019-10-17 19:30 | NUR ---
RECEIVED PT FROM [facility] RN. PT AWAKE, LYING IN BED AT THIS TIME. DENIES PAIN UPON QUESTIONING. MACEDONIAN SPEAKING ONLY. A/O X3. PUPILS 3 MM, PERRL. ON 4LPM VIA NC, SPO2 @ 98%. RESPIRATIONS EVEN AND UNLABORED. ABD SOFT, NON-DISTENDED, C/O MILD TENDERNESS DUE TO H/O HERNIA. BOWEL SOUNDS ACTIVE X 4. PT ABLE TO USE URINAL INDEPENDENTLY. URINE LIGHT-RADHA COLORED. EDEMA NOTED TO RLE. U/S SCHEDULED TO R/O DVT. ALL OTHER SKIN INTACT. 20 G PERIPHERAL IV NOTED TO LT HAND INFUSING LR @ 50 ML/HR. SAFETY PRECAUTIONS REMAIN IN PLACE. BED LOW AND LOCKED. WILL CONT TO MONITOR FOR CHANGES.
[2019-10-17 20:00] VITALS: BP 118/63
--- NOTE | 2019-10-17 20:10 | NUR ---
ULTRASOUND AT BEDSIDE AT THIS TIME.
--- NOTE | 2019-10-17 20:30 | NUR ---
SON CALLED. UPDATED ON PT STATUS AT THIS TIME.
[2019-10-17] MEDS ORDERED: POTASSIUM CHLORIDE 10 MEQ TABER PO SCH (21:00)
--- NOTE | 2019-10-17 22:00 | NUR ---
PT RESTING IN BED, EASILY AROUSABLE. CONTINUES ON DROPLET PRECAUTIONS. DENIES PAIN UPON QUESTIONING. SAFETY PRECAUTIONS REMAIN IN PLACE. WILL CONT TO MONITOR.
[2019-10-18] VITALS (7 sets, daily range): BP systolic 115–150; BP diastolic 62–76
--- NOTE | 2019-10-18 | NUR ---
ASSISTED TO REPOSITION. SPO2 >95% ON 4LPM VIA NC. DENIES PAIN. ALL IMMEDIATE NEEDS BEING MET. BED LOW AND LOCKED WITH CALL LIGHT IN EASY REACH. WILL CONT TO MONITOR.
--- NOTE | 2019-10-18 02:00 | NUR ---
PT RESTING IN BED AT THIS TIME. DENIES PAIN UPON QUESTIONING. BED LOW AND LOCKED WITH CALL LIGHT WITHIN EASY REACH. ALL NEEDS BEING MET. WILL CONT TO MONITOR FOR CHANGES
--- NOTE | 2019-10-18 04:00 | NUR ---
PT RESTING, EASILY AROUSABLE. DENIES PAIN UPON QUESTIONING. WILL CONT TO MONITOR.
[2019-10-18] MEDS: AMPICILLIN/SULBACTAM 3 GM in NACL 0.9% 100 ML IV SCH ×4 (05:58→23:59)
--- NOTE | 2019-10-18 06:05 | NUR ---
PAGED DR WOODS AT THIS TIME TO REPORT BLOOD CULTURE RESULTS. AWAITING CALL BACK
[2019-10-18 06:11] LABS: BASOPHILS # (AUTO) 0.1 K/uL (0.00-0.22); BASOPHILS % (AUTO) 0.9 % (0.0-2.0); EOSINOPHILS # (AUTO) 0.4 K/uL (0-0.4); EOSINOPHILS % (AUTO) 3.1 % (0.0-4.0); HEMATOCRIT 40.1 % (36-52); HEMOGLOBIN 12.9 g/dL (12.0-18.0); LYMPHOCYTES # (AUTO) 1.6 K/uL (2.0-11.5); LYMPHOCYTES % (AUTO) 11.9 % (20.5-51.1); MEAN CORPUSCULAR HEMOGLOBIN 28 pg (27-31); MEAN CORPUSCULAR HGB CONC 32 g/dL (33-37); MEAN CORPUSCULAR VOLUME 87.7 fL (80-94); MONOCYTES # (AUTO) 0.8 K/uL (0.8-1.0); MONOCYTES % (AUTO) 5.8 % (1.7-9.3); NEUTROPHILS # (AUTO) 10.5 K/uL (1.8-7.7); NEUTROPHILS % (AUTO) 78.3 % (42.2-75.2); PLATELET COUNT (AUTO) 141 K/uL (140-450); RED BLOOD CELL COUNT(AUTO) 4.57 MIL/uL (4.20-6.10); RED CELL DISTRIBUTION WIDTH 13.7 % (11.6-13.7); WHITE BLOOD COUNT (AUTO) 13.4 K/uL (4.8-10.8)
--- NOTE | 2019-10-18 06:15 | NUR ---
SON CALLED @ THIS TIME. UPDATED ON PTS STATUS.
--- NOTE | 2019-10-18 06:29 | NUR ---
DR WOODS RETURNED CALL. NEW ORDERS OBTAINED AND IMPLEMENTED.
[2019-10-18] MEDS ORDERED: VANCOMYCIN PER PHARMACY MC PRN (06:30)
[2019-10-18 07:10] LABS: ALBUMIN 2.8 g/dL (3.4-5.0); ANION GAP 9.2 (8-16); ASPARTATE AMINOTRANSFERASE 218 U/L (15-37); CARBON DIOXIDE 33.1 mmol/L (21-32); CHLORIDE 105 mmol/L (98-107); GLUCOSE 89 mg/dL (74-106); POTASSIUM 4.3 mmol/L (3.5-5.1); SODIUM SERUM 143 mmol/L (136-145); TOTAL BILIRUBIN 0.6 mg/dL (0.0-1.0); UREA NITROGEN, BLOOD 14 mg/dL (7-18)
--- NOTE | 2019-10-18 07:30 | NUR ---
ENDORSED PT TO DAYSHIFT RN @ THIS TIME. VSS.
--- NOTE | 2019-10-18 07:30 | NUR ---
RECEIVED PT ON BED.PT NO CO PAIN NOR ANY DISCOMFORT PER PT .NO DOLOR PER PT.VSS.CALLED FOR VANCOMYCIN MEDICINE FROM PHARMACY AND WILL BRING.NSR ON THE MONITOR.
[2019-10-18] MEDS: VANCOMYCIN 1,000 MG in DEXTROSE 5% 250 ML IV SCH (08:25)
--- NOTE | 2019-10-18 08:45 | NUR ---
PATIENT HAS BEEN SCREENED AND CATEGORIZED HIGH NUTRITION RISK. PATIENT WILL BE SEEN WITHIN 1-2 DAYS OF ADMISSION. 10/18/19-10/19/[address]
[2019-10-18] MEDS: ASPIRIN 81 MG TAB.CHEW PO SCH (09:28)
[2019-10-18] MEDS: ENOXAPARIN 40 MG/0.4 ML SYR SUBQ SCH (09:29)
[2019-10-18] MEDS: LACTATED RINGERS 1,000 ML IV SCH (09:29)
--- NOTE | 2019-10-18 11:15 | NUR ---
PER LAB AND RESULTED PATTERSON VIRUS UNDETECTED.PRESS BOX CUSTODIAN AWARE . AWARE.DROPLET ISOLATION REMOVED
[2019-10-18] MEDS ORDERED: FUROSEMIDE 40 MG/4 ML VIAL IVP SCH (13:00)
--- NOTE | 2019-10-18 13:10 | NUR ---
DR WOODS RELAYED TROPONIN RESULT=0.183.PER MD CAN GO HOME.
--- NOTE | 2019-10-18 13:48 | NUR ---
10/18/19 RD INITIAL ASSESSMENT COMPLETED PLEASE REFER TO NUTRITION ASSESSMENT UNDER CARE ACTIVITY FOR ESTIMATED NUTRITIONAL NEEDS. 1. CONTINUE MECHANICAL SOFT DIET TOLERATED 2. RECOMMEND ENSURE BID 3. PROVIDE FEEDING ASSISTANCE WITH MEALS IF NEEDED 4. COLLECT DENTURES FROM FAMILY 5. RD TO FOLLOW-UP 2-3 DAYS, HIGH RISK KENNEY SEN RD
--- NOTE | 2019-10-18 15:15 | NUR ---
RIGHT AC IV WAS INSERTED BY ER NURSE DUE TO LEFT HAND IV REMOVED ACCIDENTALLY.PT IS A HARD STICK.RN EXPLAINED TO PT THE NECESSITY OF IV FOR ANTIBIOTIC.PT VERBALIZED UNDERSTANDING.ER NURSE CAN SPEAK POLISH SO ACTED DEER FARMER.
[2019-10-18] MEDS: AZITHROMYCIN 500 MG in DEXTROSE 5% 250 ML IV SCH (16:59)
--- NOTE | 2019-10-18 17:45 | NUR ---
RECEIVED BEDSIDE REPORT FROM ICU NURSE. PT RESTING IN BED. ABLE TO MAKE NEEDS KNOWN. RESPIRATIONS EVEN AND UNLABORED WITH NO SOB OR RESPIRATORY DISTRESS. SKIN WARM AND DRY TO TOUCH. SAFETY MEASURES IN PLACE. WILL CONTINUE TO MONITOR
--- NOTE | 2019-10-18 18:46 | NUR ---
ADMINISTERED SCHED MED PRESCRIBED PER MD ORDER. PT TOLERATED WELL. MEDICATION EDUCATION PERFORMED. PT VERBALIZED UNDERSTANDING. SAFETY MEASURES IN PLACE. WILL CONTINUE TO MONITOR
--- NOTE | 2019-10-18 19:25 | NUR ---
RECIEVED PT AAOX4 , NID O2 SAT WNL , DENIES ANY PAIN , ON SL - INTACT AND PATENT , ON GARDEN MACHINERY MECHANIC , W/ PRETIBIAL EDEMA +1, SKIN INTACT , SAFETY MEASURES IN PLACE , POC DISCUSSED AND VERBALIZE UNDERSTANDING - CALL LIGHT , URINAL WITHIN REACH . WILL CONT. TO MONITOR.
--- NOTE | 2019-10-18 19:25 | NUR ---
ENDORSED AT BEDSIDE TO NIGHTSHIFT NURSE. PT RESTING IN BED. ABLE TO MAKE NEEDS KNOWN. RESPIRATIONS EVEN AND UNLABORED WITH NO SOB OR RESPIRATORY DISTRESS. SKIN WARM AND DRY TO TOUCH. SAFETY MEASURES IN PLACE. PT IS STABLE
--- NOTE | 2019-10-18 22:00 | NUR ---
MADE ROUNDS , COMFORTABLY RESTING ON BED , NO COMPLAIN MADE - CALL LIGHT WITHIN REACH . WILL CONT. TO MONITOR.
[2019-10-19] VITALS: BP_SYST 135; BP_SYST 137; BP_DIAS 64
--- NOTE | 2019-10-19 | NUR ---
PRINCE TREJO , NO S/S OF ACUTE DISTRESS NOTED AT THIS TIME , WILL CONT. TO MONITOR.
[2019-10-19] MEDS: VANCOMYCIN 1,000 MG in DEXTROSE 5% 250 ML IV SCH (02:00)
--- NOTE | 2019-10-19 02:00 | NUR ---
MADE ROUNDS - SLEEPING - CHEST RISE AND FALL EQUALLY - WILL CONT. TO MONITOR - CALL LIGHT WITHIN REACH.
[2019-10-19 04:00] VITALS: BP_SYST 122; BP_DIAS 60; BP_DIAS 76
[2019-10-19] MEDS: AMPICILLIN/SULBACTAM 3 GM in NACL 0.9% 100 ML IV SCH (05:32)
--- NOTE | 2019-10-19 06:20 | NUR ---
MADE [id number] , RESP. EVEN AND UNLABORED , WILL CONT,. TO MONITOR.
--- NOTE | 2019-10-19 07:00 | NUR ---
RECEIVED REPORT FROM OPTICAL DESIGN ENGINEER NURSE DENIS-RN. PT RESTING IN BED, AOX4, KOREAN SPEAKING. DISCUSSED PLAN OF CARE AND PT VERBALIZED UNDERSTANDING. IV SITE RIGHT AC #22G RUNNING 6ML/HR NS. BEDREST USING URINAL. NO S/S OF RESPIRATORY DISTRESS OR DISCOMFORT NOTED AT THIS TIME. WILL CONTINUE TO MONITOR.
[2019-10-19 07:19] LABS: BASOPHILS # (AUTO) 0.1 K/uL (0.00-0.22); BASOPHILS % (AUTO) 1.8 % (0.0-2.0); EOSINOPHILS # (AUTO) 0.2 K/uL (0-0.4); EOSINOPHILS % (AUTO) 2.2 % (0.0-4.0); HEMATOCRIT 43.9 % (36-52); HEMOGLOBIN 14.2 g/dL (12.0-18.0); LYMPHOCYTES # (AUTO) 0.9 K/uL (2.0-11.5); LYMPHOCYTES % (AUTO) 12.8 % (20.5-51.1); MEAN CORPUSCULAR HEMOGLOBIN 28 pg (27-31); MEAN CORPUSCULAR HGB CONC 32 g/dL (33-37); MEAN CORPUSCULAR VOLUME 87.1 fL (80-94); MONOCYTES # (AUTO) 0.5 K/uL (0.8-1.0); MONOCYTES % (AUTO) 6.8 % (1.7-9.3); NEUTROPHILS # (AUTO) 5.3 K/uL (1.8-7.7); NEUTROPHILS % (AUTO) 76.4 % (42.2-75.2); PLATELET COUNT (AUTO) 135 K/uL (140-450); RED BLOOD CELL COUNT(AUTO) 5.04 MIL/uL (4.20-6.10); RED CELL DISTRIBUTION WIDTH 13.6 % (11.6-13.7); WHITE BLOOD COUNT (AUTO) 6.9 K/uL (4.8-10.8)
[2019-10-19 07:45] LABS: ALBUMIN 3.2 g/dL (3.4-5.0); ANION GAP 11.6 (8-16); ASPARTATE AMINOTRANSFERASE 108 U/L (15-37); CARBON DIOXIDE 31.2 mmol/L (21-32); CHLORIDE 101 mmol/L (98-107); GLUCOSE 106 mg/dL (74-106); POTASSIUM 3.8 mmol/L (3.5-5.1); SODIUM SERUM 140 mmol/L (136-145); TOTAL BILIRUBIN 0.4 mg/dL (0.0-1.0); UREA NITROGEN, BLOOD 15 mg/dL (7-18)
[2019-10-19 08:00] VITALS: BP 128/63
[2019-10-19] MEDS: ASPIRIN 81 MG TAB.CHEW PO SCH (09:45)
[2019-10-19] MEDS: ENOXAPARIN 40 MG/0.4 ML SYR SUBQ SCH (09:46)
--- NOTE | 2019-10-19 09:46 | NUR ---
SCHEDULED MEDICATIONS GIVEN AND TOLERATED WELL. NO S/S OF RESPIRATORY DISTRESS OR DISCOMFORT NOTED AT THIS TIME. WILL CONTINUE TO MONITOR.
[2019-10-19] MEDS ORDERED: HYDROcodone/APAP 5/325 MG 1 TAB TAB PO PRN ×2 (11:25)
[2019-10-19] MEDS ORDERED: DOCUSATE SODIUM 250 MG GELCAP PO PRN (11:25)
[2019-10-19] MEDS ORDERED: cloNIDine 0.1 MG TAB PO PRN (11:25)
[2019-10-19] MEDS ORDERED: ZOLPIDEM 5 MG TAB PO PRN (11:25)
[2019-10-19] MEDS ORDERED: guaiFENesin DM 200/20 MG-10 ML 10 ML UDC PO PRN (11:25)
[2019-10-19] MEDS ORDERED: MAGNESIUM OXIDE 400 MG TAB PO PRN (11:25)
[2019-10-19] MEDS ORDERED: POTASSIUM CHLORIDE 10 MEQ TABER PO PRN (11:25)
[2019-10-19] MEDS ORDERED: diphenhydrAMINE 50 MG/ML VIAL IVP PRN (11:25)
[2019-10-19] MEDS ORDERED: ACETAMINOPHEN 325 MG TAB PO PRN (11:25)
[2019-10-19] MEDS ORDERED: ONDANSETRON 4 MG/2 ML VIAL IVP PRN (11:25)
[2019-10-19] MEDS ORDERED: LORazepam 2 MG/ML VIAL IVP PRN (11:25)
[2019-10-19] MEDS ORDERED: MAG SULF 2000 MG/WATER PREMIX 50 ML IV PRN (11:25)
[2019-10-19] MEDS ORDERED: MORPHINE SULFATE 2 MG/ML SYR IVP PRN (11:25)
[2019-10-19] MEDS ORDERED: SODIUM PHOSPHATE 118 ML ENEM RC PRN (11:25)
[2019-10-19] MEDS ORDERED: ALUMINUM HYD/MAG/SIMETHICONE 30 ML UDC PO PRN (11:25)
[2019-10-19] MEDS ORDERED: ACETAMINOPHEN 650 MG SUPP RC PRN (11:25)
[2019-10-19] MEDS ORDERED: BISACODYL 10 MG SUPP RC PRN (11:25)
[2019-10-19 12:00] VITALS: BP 145/68
--- NOTE | 2019-10-19 12:00 | NUR ---
PT RESTING IN BED SLEEPING. NO S/S OF RESPIRATORY DISTRESS OR DISCOMFORT NOTED AT THIS TIME. WILL CONTINUE TO MONITOR.
--- NOTE | 2019-10-19 15:00 | NUR ---
PT ABEL WHITE DROPPED OFF PT DENTURES UPPER AND LOWER, A CELL PHONE WITHOUT THE HIGH SCHOOL BAND TEACHER WELL RX GLASSES. PT PERSONAL BELONGINGS HAS BEEN UPDATED.
[2019-10-19 16:00] VITALS: BP 154/76
--- NOTE | 2019-10-19 18:00 | NUR ---
US FOR LIVER (GALLBLADDER INCLUDED) TO BE DONE ONCE PT IS NPO FOR 6-8 HOURS. DUE TO PT EATING DINNER, MONSERRAT BURCIAGA CALLED SO THAT US CAN BE SCHEDULED AT A LATER TIME.
--- NOTE | 2019-10-19 19:30 | NUR ---
RECEIVED REPORT FROM DAY RN. PT RESTING IN BED, AAOX4, TAJIK SPEAKING. RESPIRATIONS ARE EQUAL AND UNLABORED ON ROOM AIR. DISCUSSED PLAN OF CARE AND PT VERBALIZED UNDERSTANDING. IV SITE RIGHT AC #22G RUNNING 6ML/HR NS. BEDREST USING URINAL. PT TO HAVE US LIVER PT JUST ATE DINNER EXPLAINED TO REMAIN NPO HE VERBALIZED UNDERSTANDING. WILL CONTINUE TO MONITOR.
[2019-10-19 20:00] VITALS: BP 150/68
[2019-10-19] MEDS ORDERED: CEFEPIME 1,000 MG VIAL ONE (20:46)
[2019-10-19] MEDS: CEFEPIME 1,000 MG in DEXTROSE 5% 50 ML IV SCH (20:50)
--- NOTE | 2019-10-19 20:50 | NUR ---
MAXIPIME INFUSING PER ORDERS. ALL NEEDS MET. CALL LIGHT IS WITHIN REACH.
--- NOTE | 2019-10-19 22:21 | NUR ---
PT IS SLEEPING COMFORTABLY IN BED WITH EYES CLOSED. CHEST RISE AND FALL NOTED. CALL LIGHT IS WITHIN REACH.
--- NOTE | 2019-10-20 | NUR ---
VITAL SIGNS ARE STABLE. ALL SAFETY MEASURES ARE IN PLACE. CALL LIGHT IS WITHIN REACH. WILL CONTINUE TO MONITOR.
[2019-10-20 00:32] VITALS: BP 158/83
--- NOTE | 2019-10-20 02:20 | NUR ---
PT IS SLEEPING COMFORTABLY IN BED WITH EYES CLOSED. CHEST RISE AND FALL NOTED. CALL LIGHT IS WITHIN REACH.
[2019-10-20 04:00] VITALS: BP 151/78
--- NOTE | 2019-10-20 04:10 | NUR ---
PATIENTS VITAL SIGNS ARE STABLE. DENIES ANY PAIN. ALL NEEDS MET AT THIS TIME. CALL LIGHT IS WITHIN REACH. WILL CONTINUE TO MONITOR.
--- NOTE | 2019-10-20 07:17 | NUR ---
PT IS LAYING COMFORTABLY IN BED WITH EYES CLOSED.NO S/S OF DISTRESS. PT IS STABLE. WILL ENDORSE TO DAY RN.
--- NOTE | 2019-10-20 07:20 | NUR ---
RECEIVED BEDSIDE SHIFT REPORT FROM CONFIGURATION ENGINEER NURSE FOR CONTINUATION OF CARE.
[2019-10-20 08:00] VITALS: BP 155/74
[2019-10-20] MEDS: ENOXAPARIN 40 MG/0.4 ML SYR SUBQ SCH (09:00)
[2019-10-20 09:12] LABS: BASOPHILS # (AUTO) 0.1 K/uL (0.00-0.22); BASOPHILS % (AUTO) 1.4 % (0.0-2.0); EOSINOPHILS # (AUTO) 0.1 K/uL (0-0.4); EOSINOPHILS % (AUTO) 2.7 % (0.0-4.0); HEMATOCRIT 44.3 % (36-52); HEMOGLOBIN 14.5 g/dL (12.0-18.0); LYMPHOCYTES # (AUTO) 1.1 K/uL (2.0-11.5); LYMPHOCYTES % (AUTO) 21.6 % (20.5-51.1); MEAN CORPUSCULAR HEMOGLOBIN 28 pg (27-31); MEAN CORPUSCULAR HGB CONC 33 g/dL (33-37); MEAN CORPUSCULAR VOLUME 86.4 fL (80-94); MONOCYTES # (AUTO) 0.6 K/uL (0.8-1.0); MONOCYTES % (AUTO) 11.7 % (1.7-9.3); NEUTROPHILS # (AUTO) 3.1 K/uL (1.8-7.7); NEUTROPHILS % (AUTO) 62.6 % (42.2-75.2); PLATELET COUNT (AUTO) 134 K/uL (140-450); RED BLOOD CELL COUNT(AUTO) 5.13 MIL/uL (4.20-6.10); RED CELL DISTRIBUTION WIDTH 13.8 % (11.6-13.7); WHITE BLOOD COUNT (AUTO) 4.9 K/uL (4.8-10.8)
[2019-10-20] MEDS: CEFEPIME 1,000 MG in DEXTROSE 5% 50 ML IV SCH (09:38)
[2019-10-20] MEDS: ASPIRIN 81 MG TAB.CHEW PO SCH (09:41)
--- NOTE | 2019-10-20 10:00 | NUR ---
RECEIVED PHONE CALL FROM RADIOLOGY US THAT THEY ARE BEHIND AND KATHI IS CLEAR TO HAVE BREAKFAST. HE TOLERATED BREAKFAST. MORNING MEDS GIVEN. FAROESE SPEAKING. AAOX3. WILL CONTINUE TO MONITOR.
[2019-10-20 10:03] LABS: ALBUMIN 3.1 g/dL (3.4-5.0); ASPARTATE AMINOTRANSFERASE 61 U/L (15-37); CARBON DIOXIDE 25.7 mmol/L (21-32); CHLORIDE 100 mmol/L (98-107); GLUCOSE 129 mg/dL (74-106); POTASSIUM 3.7 mmol/L (3.5-5.1); SODIUM SERUM 137 mmol/L (136-145); TOTAL BILIRUBIN 0.4 mg/dL (0.0-1.0); UREA NITROGEN, BLOOD 15 mg/dL (7-18)
[2019-10-20] MEDS: amLODIPine 5 MG TAB PO SCH (11:38)
[2019-10-20 12:00] VITALS: BP 148/76
--- NOTE | 2019-10-20 12:10 | NUR ---
CALL LIGHT ON AND WITHIN REACH. EDUCATED TO REPORT SIGNS AND SYMPTOMS OF WORSENING INFECTION TO STAFF. TOLERATING CEFEPINE WELL.
--- NOTE | 2019-10-20 14:24 | NUR ---
US LIVER COMPLETED. TOLERATED WELL, EATING LUNCH NOW. WILL CONTINUE TO MONITOR.
--- NOTE | 2019-10-20 14:38 | NUR ---
DISCHARGE PLANNING: THIS IS AN 88 Y/O MALE PATIENT FROM HOME, WHO CAME IN DUE TO FEVER. PAST MEDICAL HISTORY INCLUDE DEMENTIA. INITIAL DIAGNOSIS OF SEPSIS. CURRENT LABS INCLUDE WBC 4.9, H/H 14.5/44.3, NA/K 137/3.7, BUN/CREA 15/1.0. NEGATIVE FOR CORONAVIRUS AND INF A AND B. ON CEFEPIME. ID CONSULT FOR BACTEREMIA IN PLACE. DC PLAN PENDING ON PATIENT'S RESPONSE TO TREATMENT. Addendum: 10/22/19 at 1316 by Perla Louie CM DC PLANNING: SEEN BY ID DR PERALES CONTINUE IV MEROPENEM, ORDERED HIDA SCAN AND CT OF ABD/PELVIS WITH CONTRAST SHOWED VERY LARGE INGUINAL HERNIA CONTAINING RIGHT COLON AND DISTAL SMALL BOWEL , CHOLELITHIASIS SURGICAL CONSULT WITH DR NORRIS . SOURAV TO FOLLOW
[2019-10-20 16:00] VITALS: BP 144/64
--- NOTE | 2019-10-20 17:56 | NUR ---
SWITCHED TO ROOM 122A. RESTING IN BED, EDUCATED CLASSROOM TECHNOLOGY COACH LIGHT, VERBALIZED UNDERSTANDING. WILL CONTINUE TO MONITOR.
--- NOTE | 2019-10-20 19:06 | NUR ---
RECEIVED REPORT FROM DAY RN. PT RESTING IN BED, AAOX4, ARMENIAN SPEAKING. RESPIRATIONS ARE EQUAL AND UNLABORED ON ROOM AIR. DISCUSSED PLAN OF CARE AND PT VERBALIZED UNDERSTANDING. IV SITE RIGHT AC #22G SL. BEDREST USING URINAL. PT TO HAVE HD SCAN TOMORROW AND WILL BE NPO AFTER MIDNIGHT. PT JUST ATE DINNER EXPLAINED TO REMAIN NPO. HE VERBALIZED UNDERSTANDING. WILL CONTINUE TO MONITOR.
--- NOTE | 2019-10-20 19:20 | NUR ---
BEDSIDE SHIFT REPORT GIVEN TO DINKEY DRIVER NURSE FOR CONTINUATION OF CARE.
[2019-10-20 20:00] VITALS: BP 102/63
[2019-10-20] MEDS ORDERED: MEROPENEM 1,000 MG VIAL IV ONE (20:01)
[2019-10-20] MEDS: MEROPENEM 1,000 MG in NACL 0.9% 100 ML IV SCH (20:03)
--- NOTE | 2019-10-20 20:03 | NUR ---
VSS. MERREM NOW INFUSING PER ORDERS. ALL SAFETY MEASURES ARE IN PLACE. CALL LIGHT IS WITHIN REACH.
--- NOTE | 2019-10-20 20:35 | NUR ---
RECEIVED REPORT FROM AM SHIFT. PATIENT WAS RESTING IN BED WITH HOB > 30 DEGREES. PATIENT IN NO APPARENT RESPIRATORY DISTRESS AT THIS TIME: RR 16, HR 73, SPO2 95% ON ROOM AIR, AND CLEAR BILATERALLY BREATH SOUNDS. PATIENT WAS INFORMED TO CALL RN OR BREAKER UNIT ASSEMBLER FOR PRN TX WHEN EXPERIENCING SOB. WILL CONTINUE TO MONITOR PATIENT.
--- NOTE | 2019-10-20 22:30 | NUR ---
PATIENT IS LAYING COMFORTABLY IN BED WATCHING TV. NO S/S OF DISTRESS. CALL LIGHT IS WITHIN REACH. WILL CONTINUE TO MONITOR.
[2019-10-21] VITALS: BP 156/93
--- NOTE | 2019-10-21 | NUR ---
VITAL SIGNS ARE WITHIN NORMAL LIMITS. ALL SAFETY MEASURES ARE IN PLACE. CALL LIGHT IS WITHIN REACH.
--- NOTE | 2019-10-21 02:11 | NUR ---
PT IS SLEEPING COMFORTABLY IN BED WITH EYES CLOSED. CHEST RISE AND FALL NOTED. ALL SAFETY MEASURES ARE IN PLACE. CALL LIGHT IS WITHIN REACH.
[2019-10-21 04:00] VITALS: BP 153/83
[2019-10-21] MEDS ORDERED: MEROPENEM 1,000 MG VIAL IV ONE (04:06)
[2019-10-21] MEDS: MEROPENEM 1,000 MG in NACL 0.9% 100 ML IV SCH ×3 (04:08→20:20)
--- NOTE | 2019-10-21 04:10 | NUR ---
VITAL SIGNS ARE WITHIN NORMAL LIMITS. ALL NEEDS MET AT THIS TIME. CALL LIGHT IS WITHIN REACH. WILL CONTINUE TO MONITOR.
[2019-10-21 06:26] LABS: BASOPHILS # (AUTO) 0.1 K/uL (0.00-0.22); BASOPHILS % (AUTO) 1.3 % (0.0-2.0); EOSINOPHILS # (AUTO) 0.3 K/uL (0-0.4); EOSINOPHILS % (AUTO) 5.6 % (0.0-4.0); HEMATOCRIT 43.6 % (36-52); HEMOGLOBIN 14.3 g/dL (12.0-18.0); LYMPHOCYTES # (AUTO) 1.7 K/uL (2.0-11.5); LYMPHOCYTES % (AUTO) 29.8 % (20.5-51.1); MEAN CORPUSCULAR HEMOGLOBIN 28 pg (27-31); MEAN CORPUSCULAR HGB CONC 33 g/dL (33-37); MEAN CORPUSCULAR VOLUME 86.3 fL (80-94); MONOCYTES # (AUTO) 0.9 K/uL (0.8-1.0); MONOCYTES % (AUTO) 16.4 % (1.7-9.3); NEUTROPHILS # (AUTO) 2.7 K/uL (1.8-7.7); NEUTROPHILS % (AUTO) 46.9 % (42.2-75.2); PLATELET COUNT (AUTO) 139 K/uL (140-450); RED BLOOD CELL COUNT(AUTO) 5.06 MIL/uL (4.20-6.10); RED CELL DISTRIBUTION WIDTH 13.7 % (11.6-13.7); WHITE BLOOD COUNT (AUTO) 5.7 K/uL (4.8-10.8)
--- NOTE | 2019-10-21 06:44 | NUR ---
PATIENT IS SLEEPING COMFORTABLY IN BED WITH EYES CLOSED. CHEST RISE AND FALL NOTED. PT IS STABLE. WILL ENDORSE TO DAY RN.
[2019-10-21 06:56] LABS: ALBUMIN 2.9 g/dL (3.4-5.0); ANION GAP 10.3 (8-16); ASPARTATE AMINOTRANSFERASE 45 U/L (15-37); CARBON DIOXIDE 28.7 mmol/L (21-32); CHLORIDE 103 mmol/L (98-107); GLUCOSE 101 mg/dL (74-106); SODIUM SERUM 138 mmol/L (136-145); TOTAL BILIRUBIN 0.3 mg/dL (0.0-1.0); UREA NITROGEN, BLOOD 15 mg/dL (7-18)
--- NOTE | 2019-10-21 07:05 | NUR ---
RECEIVED REPORT FROM NIGHT NURSE FOR CONTINUITY OF CARE, PT IS ASLEEP IN BED, RESPIRATIONS ARE EVEN AND UNLABORED ON ROOM AIR, PT IS STABLE, PT HAS RIGHT AC 20G SALINE LOCK, PT HAS INTACT SKIN, PT ON CONTACT PRECAUTION FOR POSITIVE BLOOD CULTURES, PT CURRENTLY NPO FOR PROCEDURE, SAFETY MEASURES IN PLACE, UPDATED WHITE BOARD, CALL LIGHT WITHIN REACH.
[2019-10-21 08:00] VITALS: BP 139/72
--- NOTE | 2019-10-21 08:24 | NUR ---
PT OFF UNIT FOR PROCEDURE.
--- NOTE | 2019-10-21 09:54 | NUR ---
PT IN NUCLEAR MEDICINE ROOM, ADMINISTERED MORPHINE FOR PROCEDURE, PT IS STABLE.
--- NOTE | 2019-10-21 10:38 | NUR ---
PT BACK IN THE ROOM, PT IS STABLE
[2019-10-21] MEDS: amLODIPine 5 MG TAB PO SCH (10:40)
[2019-10-21] MEDS: ASPIRIN 81 MG TAB.CHEW PO SCH (10:40)
[2019-10-21] MEDS: ENOXAPARIN 40 MG/0.4 ML SYR SUBQ SCH (10:41)
--- NOTE | 2019-10-21 10:43 | NUR ---
ADMINISTERED ORDERED MEDICATION, PT EDUCATION GIVEN, PT TOLERATED MEDICATION WELL, CALL LIGHT WITHIN REACH.
--- NOTE | 2019-10-21 11:50 | NUR ---
PER DR JARVIS ORDERED A BLADDER SCAN ON PT, BLADDER SCAN SHOWED 126ML URINE, PT STATES HE IS URINATING FINE, PT STABLE, CALL LIGHT WITHIN REACH.
[2019-10-21 12:00] VITALS: BP 111/75
--- NOTE | 2019-10-21 13:31 | NUR ---
10/21/19 RD FOLLOW UP COMPLETED PLEASE REFER TO NUTRITION ASSESSMENT UNDER CARE ACTIVITY FOR ESTIMATED NUTRITIONAL NEEDS. 1. CONTINUE PUREE DIET TOLERATED 2. RECOMMEND ENSURE BID IF PO INTAKE <75% 3. PROVIDE FEEDING ASSISTANCE WITH MEALS IF NEEDED 4. COLLECT DENTURES FROM FAMILY 5. RD TO FOLLOW-UP 3-5 DAYS, MODERATE RISK KENNEY SEN RD
--- NOTE | 2019-10-21 13:48 | NUR ---
ADMINISTERED ORDERED MEDICATION, PT EDUCATION GIVEN, PT VERBALIZED UNDERSTANDING, PT IS STABLE, CALL LIGHT WITHIN REACH.
--- NOTE | 2019-10-21 13:50 | NUR ---
PT RESTING IN ROOM, PT ASKED FOR HIS CALL LIGHT TO BE EXTENDED, PT IS STABLE, NO SIGNS OF DISTRESS NOTED, CALL LIGHT WITHIN REACH.
--- NOTE | 2019-10-21 15:00 | NUR ---
PT IS RESTING IN BED, PT IS STABLE, SAFETY MEASURES IN PLACE, CALL LIGHT WITHIN REACH.
[2019-10-21 16:00] VITALS: BP 124/65
--- NOTE | 2019-10-21 17:00 | NUR ---
PT RESTING IN BED, PT IS STABLE, NO SIGNS OF DISTRESS NOTED, CALL LIGHT WITHIN REACH.
--- NOTE | 2019-10-21 18:30 | NUR ---
PT OFF UNIT FOR CT OF ABDOMEN.
--- NOTE | 2019-10-21 18:42 | NUR ---
PT BACK IN THE ROOM, PT IS STABLE.
--- NOTE | 2019-10-21 18:50 | NUR ---
ADMINISTERED COLACE FOR CONSTIPATION, EDUCATION GIVEN, PT VERBALIZED UNDERSTANDING, PT IS STABLE, CALL LIGHT WITHIN REACH.
--- NOTE | 2019-10-21 19:20 | NUR ---
GAVE REPORT TO NIGHT NURSE FOR CONTINUITY OF CARE, PT STABLE.
--- NOTE | 2019-10-21 19:22 | NUR ---
RECEIVED REPORT FROM DAY SHIFT NURSE. PLAN OF CARE DISCUSSED. PATIENT IN BED EATING. HOB ELEVATED. RESPIRATIONS EVEN AND UNLABORED. SKIN IS WARM AND DRY. DENIES ANY PAIN OR DISCOMFORT AT THIS TIME. IV G20 ON R AC PATENT AND INTACT. SALINE LOCKED. SAFETY MEASURES IN PLACE. BED IN LOW POSITION, SIDE RAILS RAISED, CALL LIGHT WITHIN REACH. WILL CONTINUE TO MONITOR.
--- NOTE | 2019-10-21 19:55 | NUR ---
RECEIVED PATIENT ON ROOM AIR, PULSE OX SAT 96%. PT DENIES SOB. PRN HHN NOT INDICATED AT THIS TIME. NO ACUTE RESPIRATORY DISTRESS NOTED AT THIS TIME. PT MADE AWARE OF ORDERED MEDICATION FREQUENCY AND INSTRUCTED TO CALL NEEDED FOR SOB. WILL CONTINUE TO MONITOR.
[2019-10-21 20:00] VITALS: BP 109/70
--- NOTE | 2019-10-21 20:21 | NUR ---
ROUNDS MADE. PATIENT IN BED WATCHING TV. PATIENT ON SEMI-FOWLERS POSITION. SCHEDULED MEDICATION GIVEN. VITAL SIGNS STABLE. RESPIRATIONS EVEN AND UNLABORED. SKIN IS WARM AND DRY. DENIES ANY PAIN OR DISCOMFORT AT THIS TIME. KEPT COMFORTABLE. SAFETY MEASURES IN PLACE. BED IN LOW POSITION, SIDE RAILS RAISED, CALL LIGHT WITHIN REACH. WILL CONTINUE TO MONITOR.
--- NOTE | 2019-10-21 23:30 | NUR ---
PATIENT IN BED SLEEPING. ON SEMI-FOWLERS POSITION. NO SIGNS AND SYMPTOMS OF DISTRESS NOTED. RESPIRATIONS EVEN AND UNLABORED. SAFETY MEASURES IN PLACE. BED IN LOW POSITION, SIDE RAILS RAISED, CALL LIGHT WITHIN REACH. KEPT COMFORTABLE. WILL CONTINUE TO MONITOR.
[2019-10-22] VITALS: BP 135/72
--- NOTE | 2019-10-22 00:38 | NUR ---
ROUNDS DONE. PATIENT IN BED WITH HOB ELEVATED. VITAL SIGNS STABLE. NO VERBALIZED PAIN OR DISTRESS AT THIS TIME. PATIENT KEPT COMFORTABLE. SAFETY MEASURES IN PLACE. BED IN LOW POSITION, SIDE RAILS RAISED, CALL LIGHT WITHIN REACH. WILL CONTINUE TO MONITOR.
--- NOTE | 2019-10-22 02:03 | NUR ---
PATIENT IN BED SLEEPING. ON SEMI-QUINTERO'S POSITION. RESPIRATIONS EVEN AND UNLABORED. NO SIGNS AND SYMPTOMS OF PAIN OR DISTRESS NOTED. SAFETY MEASURES IN PLACE. BED IN LOW POSITION, SIDE RAILS RAISED, CALL LIGHT WITHIN REACH. WILL CONTINUE TO MONITOR.
[2019-10-22 04:00] VITALS: BP 112/76
[2019-10-22] MEDS: MEROPENEM 1,000 MG in NACL 0.9% 100 ML IV SCH ×2 (04:31→13:29)
--- NOTE | 2019-10-22 04:36 | NUR ---
ROUNDS DONE. PATIENT IN BED ON SEMI-FOWLERS POSITION. VITAL SIGNS STABLE. SCHEDULED MEDS GIVEN ORDERED. DENIES ANY PAIN OR DISCOMFORT. BREATHING EVEN AND UNLABORED. SAFETY MEASURES IN PLACE. WILL CONTINUE TO MONITOR.
[2019-10-22 06:25] LABS: BASOPHILS # (AUTO) 0.1 K/uL (0.00-0.22); BASOPHILS % (AUTO) 1.7 % (0.0-2.0); EOSINOPHILS # (AUTO) 0.3 K/uL (0-0.4); EOSINOPHILS % (AUTO) 4.9 % (0.0-4.0); HEMATOCRIT 43.7 % (36-52); HEMOGLOBIN 14.4 g/dL (12.0-18.0); LYMPHOCYTES # (AUTO) 1.6 K/uL (2.0-11.5); LYMPHOCYTES % (AUTO) 25.8 % (20.5-51.1); MEAN CORPUSCULAR HEMOGLOBIN 28 pg (27-31); MEAN CORPUSCULAR HGB CONC 33 g/dL (33-37); MEAN CORPUSCULAR VOLUME 85.5 fL (80-94); MONOCYTES % (AUTO) 16.2 % (1.7-9.3); NEUTROPHILS # (AUTO) 3.1 K/uL (1.8-7.7); NEUTROPHILS % (AUTO) 51.4 % (42.2-75.2); PLATELET COUNT (AUTO) 136 K/uL (140-450); RED BLOOD CELL COUNT(AUTO) 5.11 MIL/uL (4.20-6.10); RED CELL DISTRIBUTION WIDTH 13.8 % (11.6-13.7); WHITE BLOOD COUNT (AUTO) 6.1 K/uL (4.8-10.8)
[2019-10-22 06:37] LABS: ALBUMIN 2.8 g/dL (3.4-5.0); ANION GAP 9.6 (8-16); ASPARTATE AMINOTRANSFERASE 48 U/L (15-37); CARBON DIOXIDE 30.7 mmol/L (21-32); CHLORIDE 104 mmol/L (98-107); GLUCOSE 102 mg/dL (74-106); POTASSIUM 4.3 mmol/L (3.5-5.1); SODIUM SERUM 140 mmol/L (136-145); TOTAL BILIRUBIN 0.3 mg/dL (0.0-1.0); UREA NITROGEN, BLOOD 17 mg/dL (7-18)
--- NOTE | 2019-10-22 07:03 | NUR ---
RECEIVED REPORT FROM NIGHT NURSE FOR CONTINUITY OF CARE, PT IS STABLE, PT IS ASLEEP, RESPIRATIONS ARE EVEN AND UNLABORED ON ROOM AIR, PT HAS RIGHT AC 20G SALINE LOCK, SKIN INTACT, PT HAS A HERNIA, PT HAS RIGHT LEG EDEMA, SWOLLEN SCROTUM, SAFETY MEASURES IN PLACE, UPDATED WHITEBOARD, CALL LIGHT WITHIN REACH, WILL CONTINUE TO MONITOR.
--- NOTE | 2019-10-22 07:04 | NUR ---
ENDORSED PATIENT TO DAY SHIFT NURSE. DISCUSSED PLAN OF CARE. PATIENT IN BED WIT HOB ELEVATED. NO SIGNS AND SYMPTOMS OF DISTRESS NOTED. SAFETY MEASURES IN PLACE. PATIENT IN STABLE CONDITION.
[2019-10-22 08:00] VITALS: BP 142/83
[2019-10-22] MEDS: amLODIPine 5 MG TAB PO SCH (08:44)
[2019-10-22] MEDS: ASPIRIN 81 MG TAB.CHEW PO SCH (08:44)
--- NOTE | 2019-10-22 08:48 | NUR ---
ADMINISTERED SCHEDULED MEDICATION, MEDICATION EDUCATION GIVEN, PT VERBALIZED UNDERSTANDING, PT IS STABLE, CALL LIGHT WITHIN REACH. SAFETY MEASURES IN PLACE.
[2019-10-22] MEDS ORDERED: ENOXAPARIN 30 MG/0.3 ML SYR SUBQ SCH (09:00)
--- NOTE | 2019-10-22 11:00 | NUR ---
PT IS SITTING ON HIS BED WATCHING TV, PT IS STABLE, CALL LIGHT WITHIN REACH.
[2019-10-22 12:00] VITALS: BP 127/73
--- NOTE | 2019-10-22 13:32 | NUR ---
ADMINISTERED SCHEDULED MEDICATION, MEDICATION EDUCATION GIVEN, PT VERBALIZED UNDERSTANDING, PT IS STABLE, CALL LIGHT WITHIN REACH.
--- NOTE | 2019-10-22 15:00 | NUR ---
PT IS RESTING ON HIS BED, PT IS STABLE, CALL LIGHT WITHIN REACH.
[2019-10-22 16:00] VITALS: BP 107/67
[2019-10-22] MEDS ORDERED: AMLO5TAB6 PO (16:03)
[2019-10-22] MEDS ORDERED: ASPI81CT95 PO (16:03)
[2019-10-22] MEDS ORDERED: LEVO750T51 PO (16:03)
--- NOTE | 2019-10-22 18:10 | NUR ---
PT DISCHARGED HOME. DISCHARGED INSTRUCTIONS GIVEN TO ROEL WHITE'S SON, PT WHEELED OUT TO THE LOBBY BY ANALYTICS ANALYST, PT STABLE, IV REMOVED.
--- NOTE | 2019-10-23 11:21 | NUR ---
PCP Appointment: JOANNA contacted [place] to schedule hospital follow up for patient [phone]. Patient had already scheduled appointment at 10/30/2019 @ [address] Benson Etienne @ [address] [place] [address]. No further needs identified.
== END 2019-10-22 18:15 | disposition home or self-care (01) | DRG 720 ==
LOC: MED 11:06 → MIC 14:39 → EEVIPCON 14:39 → MTU 10-18 19:39
PROVIDERS: ADMIT Internal Medicine Pulmonary Disease; ATTEND Internal Medicine Pulmonary Disease
DX: A41.51 Sepsis due to Escherichia coli [E. coli] (principal); I50.21 Acute systolic (congestive) heart failure; B96.89 Other specified bacterial agents as the cause of diseases classified elsewhere; E44.1 Mild protein-calorie malnutrition; F03.90 Unspecified dementia, unspecified severity, without behavioral disturbance, psychotic disturbance, mood disturbance, and anxiety; A08.4 Viral intestinal infection, unspecified; Z68.28 Body mass index [BMI] 28.0-28.9, adult; B96.20 Unspecified Escherichia coli [E. coli] as the cause of diseases classified elsewhere; I25.10 Atherosclerotic heart disease of native coronary artery without angina pectoris; I11.0 Hypertensive heart disease with heart failure; K21.9 Gastro-esophageal reflux disease without esophagitis; Z11.59 Encounter for screening for other viral diseases
CPT/HCPCS: 36415; 36600; 71045; 76705; 78223; 80053; 80202; 81001; 82803; 83605; 83880; 84484; 85025; 85610; 85730; 87040; 87081; 87086; 87804; 93005; 93971; 99285; A9510; C1758; J0295; J0456; J0692; J1650; J1940; J2185; J2270; J3370; J7030; J7060; J7120; Q0092; Q9967

== ENCOUNTER 2022-05-05 08:05 | Emergency (ER) | payer OTHER ==
[~2022-05-05] VITALS: Ht 177.8 cm; Wt 90.7 kg
[~2022-05-05 08:05] MED LIST changes: +AMLO-3 PO; +ASPI81CT95 PO; -LEVO750T2 PO; +MIRABULK PO; +SULF-954 PO
[2022-05-05 08:06] VITALS: BP 147/88
--- NOTE | 2022-05-05 08:06 | NUR ---
Patient BIBA to bed 11.
--- NOTE | 2022-05-05 08:08 | NUR ---
89/M BIBA FROM HOME C/O DIARRHEA ONSET YESTERDAY. DENIES NAUSEA OR VOMITING. DENIES BLOOD IN STOOL. DENIES ABD PAIN. STATES HX BOWEL OBSTRUCTION. PMH: BOWEL OBSTRUCTION NKA MED: NONE
[2022-05-05] MEDS ORDERED: NACL 0.9% 1,000 ML IV SCH (08:10)
--- NOTE | 2022-05-05 08:26 | NUR ---
IV ESTABLISHED TO LEFT HAND 20G. BLOOD DRAWN. XR AT BEDSIDE
--- NOTE | 2022-05-05 08:32 | NUR ---
PT WENT TO CT
[2022-05-05 08:34] LABS: BASOPHILS # (AUTO) 0.1 K/uL (0.00-0.22); BASOPHILS % (AUTO) 0.8 % (0.0-2.0); EOSINOPHILS # (AUTO) 0.3 K/uL (0-0.4); EOSINOPHILS % (AUTO) 3.6 % (0.0-4.0); HEMATOCRIT 40.4 % (36-52); HEMOGLOBIN 13.4 g/dL (12.0-18.0); LYMPHOCYTES % (AUTO) 23.3 % (20.5-51.1); MEAN CORPUSCULAR HEMOGLOBIN 29 pg (27-31); MEAN CORPUSCULAR HGB CONC 33 g/dL (33-37); MONOCYTES # (AUTO) 0.8 K/uL (0.8-1.0); MONOCYTES % (AUTO) 9.4 % (1.7-9.3); NEUTROPHILS # (AUTO) 5.3 K/uL (1.8-7.7); NEUTROPHILS % (AUTO) 62.9 % (42.2-75.2); PLATELET COUNT (AUTO) 141 K/uL (140-450); RED BLOOD CELL COUNT(AUTO) 4.64 MIL/uL (4.20-6.10); RED CELL DISTRIBUTION WIDTH 13.8 % (11.6-13.7); WHITE BLOOD COUNT (AUTO) 8.4 K/uL (4.8-10.8)
--- NOTE | 2022-05-05 08:58 | NUR ---
PT BACK FROM CT. UNABLE TO PROVIDE URINE OR STOOL SAMPLE AT THIS TIME. DR SIDHU AWARE
[2022-05-05 09:51] LABS: ALBUMIN 3.1 g/dL (3.4-5.0); AMYLASE 74 U/L (25-115); ANION GAP 15.7 (8-16); ASPARTATE AMINOTRANSFERASE 21 U/L (15-37); CARBON DIOXIDE 22.3 mmol/L (21-32); CHLORIDE 105 mmol/L (98-107); CREATININE 0.9 mg/dL (0.6-1.3); GLUCOSE 90 mg/dL (74-106); LIPASE 93 U/L (73-393); SODIUM SERUM 139 mmol/L (136-145); TOTAL BILIRUBIN 0.6 mg/dL (0.0-1.0); UREA NITROGEN, BLOOD 12 mg/dL (7-18)
[2022-05-05 10:13] VITALS: BP 134/75
[2022-05-05] MEDS ORDERED: LOPE1TAB14 PO (10:23)
--- NOTE | 2022-05-05 10:33 | NUR ---
ATTEMPTED TO CALL GENARO, DAUGHTER, FOR PT PICKUP. LVM.
--- NOTE | 2022-05-05 10:46 | NUR ---
Patient discharged with v/s stable. Written and verbal after care instructions given and explained. Patient verbalized understanding. Ambulatory with steady gait. All questions addressed prior to discharge. Advised to follow up with PMD. PT NEXT OF KIN CONTACTED AND WAS TOLD OF PATIENT'S DC. PER GENARO, CAREGIVER WILL BE ARRIVING FOR PICKUP SHORTLY. PATIENT WAITING IN THE WAITING AREA
[2022-05-05 13:51] LABS: APPEARANCE,URINE CLEAR (CLEAR); BILIRUBIN,URINE NEGATIVE (NEGATIVE); BLOOD, URINE 1+ (NEGATIVE); COLOR,URINE YELLOW (YELLOW); LEUKOCYTE ESTERASE ,URINE NEGATIVE (NEGATIVE); NITRITE, URINE NEGATIVE (NEGATIVE); UGLUCOSE NEGATIVE (NEGATIVE)
[2022-05-05 14:11] LABS: OTHER CASTS, URINE None Seen /LPF (None Seen); WBC,URINE 0-5 /HPF (0-5)
== END 2022-05-05 10:46 | disposition home or self-care (01) ==
LOC: MED 08:05
DX: R19.7 Diarrhea, unspecified (principal); K40.90 Unilateral inguinal hernia, without obstruction or gangrene, not specified as recurrent; N40.0 Benign prostatic hyperplasia without lower urinary tract symptoms; Z90.49 Acquired absence of other specified parts of digestive tract; Z79.82 Long term (current) use of aspirin; Z79.899 Other long term (current) drug therapy
CPT/HCPCS: 36415; 74021; 74176; 80053; 81001; 82150; 83690; 85025; 96360; 99285; J7030